=== PATIENT | male | born 1945 | race Two or more races ===

== ENCOUNTER 2017-04-28 23:23 | Inpatient (IN) | payer MEDICARE, MEDICAID ==
[~2017-04-28 23:23] MED LIST: HUMALOG MI100 UNITS1 SC; ISOSORBIDE MONO30 M4 PO; LEVEMIR100 UNITS/ SC; LIPITOR80 M1 PO; LISINOPRIL-HCT1 EAC2 PO; LOPRESSOR50 M1 PO; METOPROLOL TART25 M1 PO; PLAVIX75 M1 PO; VENTOLIN HFA18 G2 PO
[2017-04-29 00:12] LABS: BASO % 0.4 % (0-2); EOS % 3.3 % (0-7); EOSINOPHIL ABSOLUTE COUNT 0.3 tho/cmm (0.0-0.7); HCT-HEMATOCRIT 26.1 % (36.0-53.5); HGB-HEMOGLOBIN 8.7 gm/dl (13.5-17.0); IMMATURE GRANULOCYTES ABSOLUTE 0.02 tho/cmm (0-0.03); IMMATURE GRANULOCYTES PERCENT 0.2 % (0-0.3); LYMPH % 27.8 % (20-45); LYMPH ABSOLUTE COUNT 2.7 tho/cmm (0.8-4.5); MCH (MEAN CORPUSCULAR HGB) 29.3 pg (28.0-32.0); MCHC MEAN CORPUSCULAR HGB CONC 33.3 % (32.0-36.0); MCV (MEAN CELL VOLUME) 87.9 fl (82.0-96.0); MEAN PLATELET VOLUME 9.9 cmc (9.4-12.4); MONO % 6.4 % (0-12); MONOCYTE ABSOLUTE COUNT 0.6 tho/cmm (0.0-1.2); NEUTROPHIL ABSOLUTE COUNT 6.1 tho/cmm (1.6-8.0); NEUTROPHIL-AUTOMATED 6.1 tho/cmm (1.6-8.0); NEUTROPHILS % 61.9 % (40-80); PLATELET COUNT 250 tho/cmm (150-450); RED BLOOD COUNT 2.97 mil/cmm (4.40-5.70); RED CELL DISTRIBUTION WIDTH 13.3 % (12.4-16.4); WHITE BLOOD COUNT 9.8 tho/cmm (4.0-10.0)
[2017-04-29 00:26] LABS: ANION GAP 13 mmol/L (0-20); BLOOD UREA NITROGEN 31 mg/dl (6-24); CALCIUM 8.9 mg/dl (8.5-10.5); CARBON DIOXIDE-VENOUS 23 mmol/L (22-32); CHLORIDE 107 mmol/l (96-110); CREATININE 1.55 mg/dl (0.60-1.30); GLUCOSE 129 mg/dL (70-110); POTASSIUM 3.4 mmol/L (3.7-5.1); SODIUM 140 mmol/L (135-145); eGFR VALUE FOR BLACK 52 mL/Min
[2017-04-29 06:05] LABS: BASO % 0.3 % (0-2); EOS % 4.9 % (0-7); EOSINOPHIL ABSOLUTE COUNT 0.5 tho/cmm (0.0-0.7); HCT-HEMATOCRIT 26.7 % (36.0-53.5); IMMATURE GRANULOCYTES ABSOLUTE 0.02 tho/cmm (0-0.03); IMMATURE GRANULOCYTES PERCENT 0.2 % (0-0.3); LYMPH % 39.5 % (20-45); LYMPH ABSOLUTE COUNT 3.8 tho/cmm (0.8-4.5); MCH (MEAN CORPUSCULAR HGB) 29.6 pg (28.0-32.0); MCHC MEAN CORPUSCULAR HGB CONC 33.7 % (32.0-36.0); MCV (MEAN CELL VOLUME) 87.8 fl (82.0-96.0); MEAN PLATELET VOLUME 10.1 cmc (9.4-12.4); MONO % 6.1 % (0-12); MONOCYTE ABSOLUTE COUNT 0.6 tho/cmm (0.0-1.2); NEUTROPHIL ABSOLUTE COUNT 4.7 tho/cmm (1.6-8.0); NEUTROPHIL-AUTOMATED 4.7 tho/cmm (1.6-8.0); PLATELET COUNT 226 tho/cmm (150-450); RED BLOOD COUNT 3.04 mil/cmm (4.40-5.70); RED CELL DISTRIBUTION WIDTH 13.2 % (12.4-16.4); WHITE BLOOD COUNT 9.6 tho/cmm (4.0-10.0)
[2017-04-29 06:20] LABS: ANION GAP 14 mmol/L (0-20); BLOOD UREA NITROGEN 29 mg/dl (6-24); CALCIUM 8.6 mg/dl (8.5-10.5); CARBON DIOXIDE-VENOUS 22 mmol/L (22-32); CHLORIDE 112 mmol/l (96-110); CHOLESTEROL 147 mg/dl (120-200); CREATININE 1.28 mg/dl (0.60-1.30); HDL CHOLESTEROL 82 mg/dl (40-60); LDL CHOLESTEROL 51 mg/dl (0-99); POTASSIUM 3.4 mmol/L (3.7-5.1); SODIUM 145 mmol/L (135-145); TRIGLYCERIDES 74 mg/dl (<149); VLDL 15 mg/dl (0-30); eGFR VALUE FOR BLACK 66 mL/Min
[2017-04-29 06:22] LABS: GLUCOSE 70 mg/dL (70-110)
[2017-04-29 13:17] LABS: INR 0.9 INR (0.9-1.1); PROTHROMBIN TIME 10.4 SECONDS (9.0-13.6)
[2017-04-29 13:25] LABS: IRON 46 ug/dl (49-181); IRON BINDING CAPACITY 282 ug/dl (250-450)
[2017-04-29] MEDS ORDERED: HUMALOG100 UNIT/2 SC (14:12)
[2017-04-29] MEDS ORDERED: ASPIRIN EC81 MG PO (15:04)
--- NOTE | 2017-04-29 18:12 | NUR ---
NOTIFIED DR CONNELL THAT PATIENTS BLOOD SUGAR WAS 440. INSTRUCTED TO INCREASE SSI TO AGGRESIVE SCALE. RECHECK BLOOD SUGAR WAS 325.
[2017-04-30 05:27] LABS: BASO % 0.5 % (0-2); EOS % 6.4 % (0-7); EOSINOPHIL ABSOLUTE COUNT 0.5 tho/cmm (0.0-0.7); HCT-HEMATOCRIT 26.5 % (36.0-53.5); HGB-HEMOGLOBIN 8.9 gm/dl (13.5-17.0); IMMATURE GRANULOCYTES ABSOLUTE 0.02 tho/cmm (0-0.03); IMMATURE GRANULOCYTES PERCENT 0.2 % (0-0.3); LYMPH % 24.8 % (20-45); MCH (MEAN CORPUSCULAR HGB) 29.5 pg (28.0-32.0); MCHC MEAN CORPUSCULAR HGB CONC 33.6 % (32.0-36.0); MCV (MEAN CELL VOLUME) 87.7 fl (82.0-96.0); MEAN PLATELET VOLUME 9.6 cmc (9.4-12.4); MONOCYTE ABSOLUTE COUNT 0.6 tho/cmm (0.0-1.2); NEUTROPHILS % 61.1 % (40-80); PLATELET COUNT 221 tho/cmm (150-450); RED BLOOD COUNT 3.02 mil/cmm (4.40-5.70); RED CELL DISTRIBUTION WIDTH 12.9 % (12.4-16.4); WHITE BLOOD COUNT 8.2 tho/cmm (4.0-10.0)
[2017-04-30 05:38] LABS: ANION GAP 11 mmol/L (0-20); BLOOD UREA NITROGEN 28 mg/dl (6-24); CALCIUM 8.5 mg/dl (8.5-10.5); CARBON DIOXIDE-VENOUS 26 mmol/L (22-32); CHLORIDE 110 mmol/l (96-110); CREATININE 1.32 mg/dl (0.60-1.30); GLUCOSE 102 mg/dL (70-110); POTASSIUM 3.3 mmol/L (3.7-5.1); SODIUM 144 mmol/L (135-145); eGFR VALUE FOR BLACK 63 mL/Min
[2017-04-30] MEDS ORDERED: AMOXICILLIN500 M1 PO (13:22)
[2017-04-30] MEDS ORDERED: FERROUS GLUCON324 M1 PO (13:23)
== END 2017-04-30 15:30 | DRG 281 ==
LOC: EDMED 23:23 → EMR2 04-29 02:12 → PCUB 04-29 07:18
PROVIDERS: Emergency Medicine; Family Medicine; Internal Medicine Interventional Cardiology; ADMIT Internal Medicine Cardiovascular Disease
DX: I21.4 Non-ST elevation (NSTEMI) myocardial infarction (principal); N17.9 Acute kidney failure, unspecified; I25.10 Atherosclerotic heart disease of native coronary artery without angina pectoris; E78.5 Hyperlipidemia, unspecified; I12.9 Hypertensive chronic kidney disease with stage 1 through stage 4 chronic kidney disease, or unspecified chronic kidney disease; E11.22 Type 2 diabetes mellitus with diabetic chronic kidney disease; N18.3 Chronic kidney disease, stage 3 (moderate); D64.9 Anemia, unspecified; H66.92 Otitis media, unspecified, left ear; E87.6 Hypokalemia; Z59.0 Homelessness; Z79.02 Long term (current) use of antithrombotics/antiplatelets; Z79.4 Long term (current) use of insulin; Z79.899 Other long term (current) drug therapy
CPT/HCPCS: C8929; J1650; J1815